=== PATIENT | female | born 1960 | race Two or more races ===

== ENCOUNTER 2025-01-11 16:51 | Emergency (ER) | payer OTHER ==
[~2025-01-11] VITALS: Ht 162.6 cm; Wt 106.6 kg
[2025-01-11] MEDS ORDERED: METFORMIN HCL500 MG (17:04)
[2025-01-11] MEDS ORDERED: AVAPRO75 MG PO (17:04)
[2025-01-11 18:42] LABS: HEMATOCRIT 36.4 % (36.0-45.00); HEMOGLOBIN 12.3 g/dL (12.0-15.00); MEAN CELL VOLUME 84.6 fL (80.00-100.00); MEAN CORPUSCULAR HEMOGLOBIN 28.5 pg (27.00-32.0); MEAN CORPUSCULAR HGB CONC 33.7 g/dl (32.0-36.0); PLATELET COUNT 245 K/uL (150-450); RED BLOOD COUNT 4.31 M/uL (4.00-6.00)
[2025-01-11] MEDS ORDERED: ACETAMINOPHEN500 M1 PO (19:43)
[2025-01-11] MEDS ORDERED: GILTUSS COUGH-118 M1 PO (19:43)
== END 2025-01-11 19:52 | disposition home or self-care (01) ==
LOC: ER 16:54
PROVIDERS: Preventive Medicine Public Health & General Preventive Medicine
DX: J06.9 Acute upper respiratory infection, unspecified (principal)